=== PATIENT | female | born 1985 | race Caucasian/White ===

== ENCOUNTER 2017-05-16 01:18 | Emergency (ER) | payer OTHER ==
[~2017-05-16] VITALS: Ht 162.6 cm; Wt 56.0 kg
[~2017-05-16 01:18] MED LIST: BREAST PUMP1 MI1; IBUP-232 PO; OXYC1TAB63 PO; SENN1TAB PO
[2017-05-16 01:32] VITALS: BP 126/80; PULSE 116; RESP 18; TEMP 98.6; O2SAT 97
[2017-05-16] MEDS ORDERED: LEXA10TA PO (01:43)
[2017-05-16] MEDS ORDERED: XANA2TAB2 PO (01:44)
[2017-05-16] MEDS ORDERED: ARIP1TAB5 PO (01:44)
[2017-05-16] MEDS ORDERED: DIPHTH/TETANUS/ACEL PERTUSSIS (BOOSTER) 0.5 ML VIAL/PFS IM ONE (01:45)
[2017-05-16] MEDS ORDERED: CEPHALEXIN MONOHYDRATE 500 MG CAP PO ONE (01:45)
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
[2017-05-16 02:23] LABS: AUTOMATED NEUTROPHIL # 7.7 TH/MM3 (1.8-7.7); BASOPHIL # 0.1 TH/MM3 (0-0.2); BASOPHIL % 0.8 % (0.0-2.0); EOSINOPHIL # 0.1 TH/MM3 (0-0.4); EOSINOPHIL % 1.2 % (0.0-4.0); HEMATOCRIT 37.8 % (35.0-46.0); HEMO FLAGS DIFF FINAL; LYMPH % 23.1 % (9.0-44.0); LYMPHOCYTE # 2.5 TH/MM3 (1.0-4.8); MEAN CELL VOLUME 87.4 FL (80.0-100.0); MEAN CORPUSCULAR HGB CONC 34.3 % (32.0-36.0); MONO % 4.8 % (0.0-8.0); NEUT % 70.1 % (16.0-70.0); PLATELET COUNT 261 TH/MM3 (150-450); RED BLOOD COUNT 4.33 MIL/MM3 (4.00-5.30); RED CELL DISTRIBUTION WIDTH 13.4 % (11.6-17.2); WHITE BLOOD COUNT 10.9 TH/MM3 (4.0-11.0)
[2017-05-16 02:26] LABS: AMPHETAMINE, URINE NEG (NEG); BARBITURATES, URINE NEG (NEG); COCAINE, URINE NEG (NEG)
[2017-05-16 02:30] LABS: ALT (GPT) 33 U/L (10-53); ANION GAP 11 MEQ/L (5-15); AST (GOT) 24 U/L (15-37); BICARBONATE 21.8 MEQ/L (21.0-32.0); BLOOD UREA NITROGEN 5 MG/DL (7-18); CHLORIDE 110 MEQ/L (98-107); GLOMERULAR FILTRATION RATE 117 ML/MIN (>89); SODIUM (NA) 143 MEQ/L (136-145)
[2017-05-16 02:32] LABS: BLOOD, URINE NEG (NEG); GLUCOSE,URINE NEG (NEG); KETONE, URINE NEG (NEG); NITRITE,URINE NEG (NEG); URINE COLOR COLORLESS (YELLW/STRAW)
[2017-05-16 02:38] LABS: COMMENT (UR) CULT NOT INDICATED; CULTURE IF INDICATED CULT NOT INDICATED
[2017-05-16 02:40] LABS: ALKALINE PHOSPHATASE 120 U/L (45-117); TOTAL BILIRUBIN ADULT 0.2 MG/DL (0.2-1.0)
[2017-05-16] MEDS ORDERED: CEPH-460 PO (02:59)
[2017-05-16 07:50] VITALS: BP 121/65; PULSE 100; RESP 19; TEMP 98.2; O2SAT 100
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
== END 2017-05-16 09:46 | disposition home or self-care (01) ==
LOC: NEPC 01:18
DX: F39 Unspecified mood [affective] disorder (principal); T22.212A Burn of second degree of left forearm, initial encounter; L03.114 Cellulitis of left upper limb; S60.221A Contusion of right hand, initial encounter; F41.9 Anxiety disorder, unspecified; F32.9 Major depressive disorder, single episode, unspecified; X19.XXXA Contact with other heat and hot substances, initial encounter; Z79.899 Other long term (current) drug therapy; Z23 Encounter for immunization
CPT/HCPCS: 73130; 80053; 80307; 81001; 84443; 84703; 85025; 90471; 90715

== ENCOUNTER 2018-02-14 13:04 | Emergency (ER) | payer OTHER ==
[~2018-02-14] VITALS: Ht 154.9 cm; Wt 53.5 kg
[~2018-02-14 13:04] MED LIST changes: +ABIL10TA8 PO; -BREAST PUMP1 MI1; +CEPH-460 PO; -IBUP-232 PO; +LEXA10TA PO; -OXYC1TAB63 PO; -SENN1TAB PO; +XANA2TAB2 PO
[2018-02-14 13:06] VITALS: BP 120/67; PULSE 104; RESP 18; TEMP 97.7; O2SAT 99
[2018-02-14] MEDS ORDERED: VALT1TAB PO (13:16)
[2018-02-14] MEDS ORDERED: LISD1CAP PO (13:16)
[2018-02-14] MEDS ORDERED: TRAM50TA PO (13:16)
--- NOTE | 2018-02-14 13:31 | PD ---
HPI Chief Complaint: Skin Problem Time Seen by Provider: 13:13 Travel History International Travel<30 days: No Contact w/Intl Traveler<30days: No Traveled to known affect area: No History of Present Illness HPI 32-year-old female presents emergency department for evaluation of a rash that is been present for approximately 3 weeks. Patient states that she saw her primary care physician last week who prescribed her tramadol, Valtrex and medication that starts with "sulfa". Says that these lesions have been healing however, she just continues to have pain. Says that she has a burning pain over her neck and lower back. Says she has difficulty wearing clothes because of the burning. She denies any fevers or chills. She denies any neck stiffness. She requests refill of her tramadol or another pain medication to decrease her pain. Says that she would be unable to follow-up with her primary care physician until next week so she came to the emergency department for evaluation. PFSH Past Medical History Hx Anticoagulant Therapy: No ADHD: Yes Anxiety: Yes Depression: Yes Cancer: No Cardiovascular Problems: No Chemotherapy: No Cerebrovascular Accident: No Diabetes: No Diminished Hearing: No Endocrine: No Gastrointestinal Disorders: Yes Genitourinary: No Headaches: No Immune Disorder: No Musculoskeletal: No Neurologic: No Psychiatric: Yes Reproductive: No Respiratory: No Integumentary: Yes (cellulitis) Immunizations Current: Yes Seizures: No ?: Not LMP: 20 Menopausal: No : 6 Para: 5 Miscarriage: 1 : 0 Past Surgical History Section: Yes (X5) Gynecologic Surgery: Yes Hysterectomy: No Other Surgery: Yes Social History Alcohol Use: Yes Tobacco Use: No Substance Use: No Allergies-Medications (Allergen,Severity, Reaction): Coded Allergies: ondansetron (Unverified Allergy, Intermediate, "MAKES ME FEEL REALLY WEIRD ", 02/14/18) sulfamethoxazole (Unverified Allergy, Mild, ITCHING, 02/14/18) trimethoprim (Unverified Allergy, Mild, ITCHING, 02/14/18) metoclopramide (Unverified Adverse Reaction, Severe, "hands go numb", 02/14) tramadol (Unverified Adverse Reaction, Intermediate, PALPITATIONS, 02/14/18 ) PT STATES NOT ALLERGIC Reported Meds & Prescriptions Reported Meds & Active Scripts Active Gabapentin 100 Mg Cap 100 Mg PO TID 3 Days Reported Vyvanse (Lisdexamfetamine Dimesylate) 10 Mg Cap Unknown Dose PO DAILY Tramadol (Tramadol HCl) 50 Mg Tab Unknown Dose PO Q4H PRN Valtrex (Valacyclovir HCl) 1,000 Mg Tab Unknown Dose PO BID Xanax (Alprazolam) 2 Mg Tab 2 Mg PO Q8H PRN Lexapro (Escitalopram Oxalate) 10 Mg Tab 10 Mg PO DAILY Review of Systems Except as stated in HPI: all other systems reviewed are Neg Physical Exam Narrative GENERAL: Well-nourished, well-developed patient. SKIN: Focused skin assessment warm/dry. Small round lesions over right upper neck healed, mildly TTP left parietal scalp- 2 small 5-10mm round ulcerations without bleeding or exudate. HEAD: Normocephalic. EYES: No scleral icterus. No injection or drainage. NECK: Supple, trachea midline. No JVD or lymphadenopathy. CARDIOVASCULAR: Regular rate and rhythm without murmurs, gallops, or rubs. RESPIRATORY: Breath sounds equal bilaterally. No accessory muscle use. GASTROINTESTINAL: Abdomen soft, non-tender, nondistended. MUSCULOSKELETAL: No cyanosis, or edema. BACK: Nontender without obvious deformity. No CVA tenderness. Data Data Last Documented VS Vital Signs Date Time Temp Pulse Resp B/P (MAP) Pulse Ox O2 Delivery O2 Flow Rate FiO2 02/14/18 13:06 97.7 104 18 120/67 (84) 99 Orders Orders Ed Discharge Order (02/14/18 13:33) MDM Medical Decision Making Medical Screen Exam Complete: Yes Emergency Medical Condition: Yes Differential Diagnosis Postherpetic neuralgia, cellulitis, contact dermatitis, herpes zoster Narrative Course 32-year-old female presents emergency department for evaluation of a rash that has been present for approximately 3 weeks. Patient states that she is still in pain and was advised to come to the emergency department for more pain medication and evaluation. Patient states she was also given Valtrex and the medication that starts with the word sulfa and says she has a couple of days left of Valtrex for treatment. Patient complains of having diffuse aching and just not feeling good. Vital signs are stable. Physical exam findings consistent with herpes zoster, and healing process. There is some scabbing of the scalp without exudate or discharge. Patient does appear to have some sensitivity to her skin in those areas. Neck is supple, no meningismus. Patient appears to have postherpetic neuralgia with healing shingles rash. Patient will receive gabapentin is the appropriate treatment for postherpetic neuralgia. She is advised to follow-up with a primary care physician. She is advised to return to the emergency department for worsening or persistent symptoms. Diagnosis Primary Impression: Herpes zoster Qualified Codes: B02.8 - Zoster with other complications Additional Impression: Post herpetic neuralgia Referrals: Primary Care Physician Additional Instructions: Monitor for signs of infection to include redness and swelling. Take medications as prescribed. Avoid taking tramadol with gabapentin as they make you feel drowsy. Scripts Gabapentin (Gabapentin) 100 Mg Cap 100 MG PO TID for Pain Management for 3 Days, #9 CAP 0 Refills Prov: Luis Rubio MD 02/14/18 Disposition: 01 DISCHARGE HOME Condition: Stable Camelia Huber Feb 14, 2018 13:31
[2018-02-14] MEDS ORDERED: GABA100C4 PO (13:32)
== END 2018-02-14 13:54 | disposition home or self-care (01) ==
LOC: PHEFT 13:04
DX: B02.9 Zoster without complications (principal); B02.29 Other postherpetic nervous system involvement; F90.9 Attention-deficit hyperactivity disorder, unspecified type; F41.9 Anxiety disorder, unspecified; F32.9 Major depressive disorder, single episode, unspecified; Z79.899 Other long term (current) drug therapy; Z88.2 Allergy status to sulfonamides; Z88.8 Allergy status to other drugs, medicaments and biological substances
CPT/HCPCS: 99283